=== PATIENT | female | born 1980 | race Two or more races ===

== ENCOUNTER 2017-08-30 11:01 | Emergency (ER) | payer OTHER ==
[~2017-08-30] VITALS: Ht 162.6 cm; Wt 90.7 kg
[2017-08-30 11:15] VITALS: BP 154/98
== END 2017-08-30 11:52 | disposition home or self-care (01) ==
LOC: ER 11:01
DX: N94.6 Dysmenorrhea, unspecified (principal)
CPT/HCPCS: 81025

== ENCOUNTER 2018-04-27 08:26 | Emergency (ER) | payer OTHER ==
[~2018-04-27] VITALS: Ht 162.6 cm; Wt 83.9 kg
[2018-04-27 09:17] LABS: Basophils # (auto) 0 uL; Basophils % (auto) 0.6 % (0.0-2.0); Eosinophils # (auto) 0 uL; Hemoglobin 10.1 g/dL (12.2-16.2); Lymphocytes # (auto) 2.2 uL; Mean Corpuscular Hemoglobin 22.6 pg (28.0-32.0); Mean Corpuscular Hgb Conc. 31.7 g/dL (32.0-36.0); Monocytes # (auto) 0.3 uL
[2018-04-27 09:18] LABS: Eosinophils % (auto) 0.4 % (0.0-7.0); Lymphocytes % (auto) 34.2 % (10.0-50.0); Mean Corpuscular Volume 71.2 fL (80.0-100.0); Monocytes % (auto) 4.3 % (0.0-12.0); Neutrophils # (auto) 3.9 uL; Neutrophils % (auto) 60.5 % (37.0-80.0); Nucleated Red Blood Cells % 0.1 %; Platelet Count (auto) 357 10^3/uL (140-450); Red Blood Cells 4.49 10^6/uL (4.0-5.20); Red Cell Distribution Width 14.8 % (11.8-14.3); White Blood Cell 6.4 10^3/uL (4.4-10.8)
[2018-04-27 09:33] LABS: Alanine Aminotransferase 21 U/L (13-56); Anion Gap 8 (5-15); Aspartate Aminotransferase 11 U/L (15-37); BUN/Creatinine Ratio 8.3; Blood Urea Nitrogen 6 mg/dL (7-18); Calcium 8.2 mg/dL (8.5-10.1); Carbon Dioxide 23 mmol/L (21-32); Chloride 108 mmol/L (98-107); GFR African American 119 mL/min; GFR Non-African American 98 mL/min; Glucose 110 mg/dL (74-106); Magnesium 1.9 mg/dL (1.6-2.6); Potassium 3.5 mmol/L (3.5-5.1); Sodium 139 mmol/L (136-145)
[2018-04-27 09:38] LABS: Alkaline Phosphatase 46 U/L (45-117); Bilirubin, Total 0.3 mg/dL (0.2-1.0); Total Protein 7.8 g/dL (6.4-8.2)
[2018-04-27] MEDS ORDERED: SODIUM CHLORIDE 0.9% 1,000 ML IV ONE (10:21)
[2018-04-27] MEDS ORDERED: KETOROLAC TROMETH 30 MG/ML 1ML VIAL IV ONE (10:30)
[2018-04-27] MEDS ORDERED: PROMETHAZINE HCL 25 MG/ML 1ML IV PRN (10:30)
[2018-04-27 10:34] LABS: Urine Bacteria NONE SEEN /hpf (None Seen); Urine Blood Negative /uL (Negative); Urine Mucus FEW (None Seen); Urine Specific Gravity 1.024 (1.001-1.035); Urine WBC 1 /hpf (0 - 5)
[2018-04-27 12:32] LABS: Beta HCG, Quantitative < 1 mlU/mL (1-3); Thyroid Stimulating Hormone 2.86 uIU/mL (0.358-3.74)
[2018-04-27 12:53] VITALS: BP 132/78
== END 2018-04-27 13:12 | disposition home or self-care (01) ==
LOC: ER 08:26
DX: R07.89 Other chest pain (principal); R10.13 Epigastric pain; D50.9 Iron deficiency anemia, unspecified
CPT/HCPCS: 36415; 71046; 76705; 80053; 81001; 83690; 83735; 84443; 84484; 84702; 85025; 93005; 96374; 99285; J1885; J7030

== ENCOUNTER 2022-08-28 15:35 | Emergency (ER) | payer OTHER ==
[~2022-08-28] VITALS: Ht 162.6 cm; Wt 99.5 kg
[2022-08-28 15:45] VITALS: BP 136/90
[2022-08-28] MEDS ORDERED: ACETAMINOPHEN 500 MG TAB PO ONE (16:15)
[2022-08-28 17:08] LABS: Basophils # (auto) 0.1 10 ^3/uL (0-0.2); Basophils % (auto) 0.8 % (0.0-2.0); Eosinophils # (auto) 0.1 10 ^3/uL (0-0.8); Hemoglobin 9.4 g/dL (12.2-16.2); Lymphocytes # (auto) 1.7 10 ^3/uL (0.4-5.4); Monocytes # (auto) 0.4 10 ^3/uL (0-1.3); Neutrophils # (auto) 6.6 10 ^3/uL (1.6-8.6); Nucleated Red Blood Cells % 0.1 %; White Blood Cell 8.9 10^3/uL (4.4-10.8)
[2022-08-28 17:09] LABS: Eosinophils % (auto) 0.8 % (0.0-7.0); Hematocrit 30.6 % (36.0-46.0); Lymphocytes % (auto) 19.4 % (10.0-50.0); Mean Corpuscular Hemoglobin 20.6 pg (28.0-32.0); Mean Corpuscular Hgb Conc. 30.8 g/dL (32.0-36.0); Red Blood Cells 4.56 10^6/uL (4.0-5.20); Red Cell Distribution Width 18.1 % (11.8-14.3)
[2022-08-28 17:19] LABS: Albumin 3.8 g/dL (3.4-5.0); BUN/Creatinine Ratio 11.1; Calcium 9.6 mg/dL (8.5-10.1); Potassium 3.9 mmol/L (3.5-5.1)
[2022-08-28 17:22] LABS: Bilirubin, Total 0.3 mg/dL (0.2-1.0); Total Protein 7.4 g/dL (6.4-8.2)
[2022-08-28] MEDS ORDERED: SODIUM CHLORIDE 0.9% 1,000 ML IV ONE (17:45)
[2022-08-28] MEDS ORDERED: ACET1CAP14 PO (19:52)
[2022-08-28] MEDS ORDERED: ASPirin 81 mg TAB PO ONE (20:00)
== END 2022-08-28 23:05 | disposition left against medical advice (07) ==
LOC: ER 15:35
DX: R07.89 Other chest pain (principal); D64.9 Anemia, unspecified; Z20.822 Contact with and (suspected) exposure to COVID-19
CPT/HCPCS: 36415; 71045; 80053; 83690; 84484; 85025; 85379; 87426; 93005

== ENCOUNTER 2023-02-06 13:33 | Emergency (ER) | payer OTHER ==
[~2023-02-06] VITALS: Ht 162.6 cm; Wt 98.3 kg
[~2023-02-06 13:33] MED LIST: ACET1CAP14 PO
[2023-02-06 14:21] LABS: Eosinophils # (auto) 0.1 10 ^3/uL (0-0.8); Hemoglobin 9.5 g/dL (12.2-16.2); Mean Corpuscular Volume 67.1 fL (80.0-100.0); Neutrophils # (auto) 5.8 10 ^3/uL (1.6-8.6); Neutrophils % (auto) 68.2 % (37.0-80.0); White Blood Cell 8.5 10^3/uL (4.4-10.8)
[2023-02-06 14:23] LABS: Basophils # (auto) 0.1 10 ^3/uL (0-0.2); Basophils % (auto) 0.8 % (0.0-2.0); Eosinophils % (auto) 0.8 % (0.0-7.0); Hematocrit 30.4 % (36.0-46.0); Lymphocytes # (auto) 2.1 10 ^3/uL (0.4-5.4); Lymphocytes % (auto) 24.8 % (10.0-50.0); Mean Corpuscular Hemoglobin 20.9 pg (28.0-32.0); Mean Corpuscular Hgb Conc. 31.2 g/dL (32.0-36.0); Monocytes # (auto) 0.5 10 ^3/uL (0-1.3); Monocytes % (auto) 5.4 % (0.0-12.0); Nucleated Red Blood Cells % 0.3 %; Red Blood Cells 4.53 10^6/uL (4.0-5.20); Red Cell Distribution Width 18.3 % (11.8-14.3)
[2023-02-06 14:44] LABS: Calcium 9.3 mg/dL (8.5-10.1); Potassium 3.8 mmol/L (3.5-5.1)
[2023-02-06 15:00] LABS: BUN/Creatinine Ratio 15.5 (10.0-20.0); Bilirubin, Total 0.3 mg/dL (0.2-1.0); Total Protein 7.4 g/dL (6.4-8.2)
[2023-02-06 15:03] LABS: Urine Bacteria NONE SEEN /hpf (None Seen); Urine Blood Negative /uL (Negative); Urine Mucus FEW (None Seen); Urine Specific Gravity 1.024 (1.001-1.035); Urine WBC 14 /hpf (0 - 5)
[2023-02-06] MEDS ORDERED: FAMO20TA10 PO (17:15)
[2023-02-06 17:31] VITALS: BP 138/76; PULSE 78; RESP 18; TEMP 98.2; O2SAT 99
== END 2023-02-06 17:35 | disposition home or self-care (01) ==
LOC: ER 13:33
DX: K29.70 Gastritis, unspecified, without bleeding (principal); E66.9 Obesity, unspecified; R06.02 Shortness of breath; R42 Dizziness and giddiness; K76.0 Fatty (change of) liver, not elsewhere classified; Z68.37 Body mass index [BMI] 37.0-37.9, adult; Z86.2 Personal history of diseases of the blood and blood-forming organs and certain disorders involving the immune mechanism; Z98.890 Other specified postprocedural states; Z79.1 Long term (current) use of non-steroidal anti-inflammatories (NSAID); Z79.899 Other long term (current) drug therapy
CPT/HCPCS: 36415; 71045; 76705; 80053; 81001; 83880; 84484; 85025; 93005

== ENCOUNTER 2023-06-26 20:47 | Inpatient (IN) | payer OTHER ==
[~2023-06-26] VITALS: Ht 157.5 cm; Wt 80.2 kg
[~2023-06-26 20:47] MED LIST changes: +FAMO20TA10 PO
[2023-06-26 21:54] LABS: Basophils # (auto) 0 10 ^3/uL (0-0.2); Basophils % (auto) 0.7 % (0.0-2.0); Eosinophils # (auto) 0.1 10 ^3/uL (0-0.8); Hematocrit 23.9 % (36.0-46.0); Lymphocytes % (auto) 28.2 % (10.0-50.0); Mean Corpuscular Hemoglobin 17.2 pg (28.0-32.0); Mean Corpuscular Hgb Conc. 29.3 g/dL (32.0-36.0); Mean Corpuscular Volume 58.6 fL (80.0-100.0); Monocytes # (auto) 0.5 10 ^3/uL (0-1.3); Monocytes % (auto) 6.9 % (0.0-12.0); Neutrophils # (auto) 4.4 10 ^3/uL (1.6-8.6); Neutrophils % (auto) 63.2 % (37.0-80.0); Nucleated Red Blood Cells % 0.1 %; Red Blood Cells 4.08 10^6/uL (4.0-5.20); Red Cell Distribution Width 19.8 % (11.8-14.3); White Blood Cell 6.9 10^3/uL (4.4-10.8)
[2023-06-26 22:11] LABS: Alanine Aminotransferase 26 U/L (7-40); Alkaline Phosphatase 50 U/L (46-116); Calcium 8.9 mg/dL (8.7-10.4); Carbon Dioxide 23 mmol/L (20-30); Chloride 108 mmol/L (98-107)
[2023-06-26 22:12] LABS: Albumin 4.6 g/dL (3.2-4.8); Anion Gap 7 (5-15); Aspartate Aminotransferase 19 U/L (13-40); BUN/Creatinine Ratio 12.5 (10.0-20.0); Bilirubin, Total 0.4 mg/dL (0.2-1.0); Blood Urea Nitrogen 8 mg/dL (9-23); Glucose 99 mg/dL (74-106); Magnesium 1.9 mg/dL (1.6-2.6); Potassium 3.7 mmol/L (3.5-5.1); Sodium 138 mmol/L (136-145); Total Protein 7.1 g/dL (5.7-8.2)
[2023-06-26 22:23] LABS: Anisocytosis Slight; Hypochromia Marked; Platelet Estimate Adequate
[2023-06-27] VITALS (11 sets, daily range): BP systolic 111–129; BP diastolic 65–75; PULSE 80–106; RESP 1–18; TEMP 98.2–99.4; O2SAT 97–100
[2023-06-27] MEDS ORDERED: ACETAMINOPHEN 325 MG TAB PO ONE (01:30)
[2023-06-27 03:10] LABS: Urine Bacteria NONE SEEN /hpf (None Seen); Urine Blood Negative /uL (Negative); Urine Clarity Clear (Clear); Urine Color Colorless (Yellow); Urine Protein, UAD Negative (Negative); Urine Specific Gravity 1.024 (1.001-1.035); Urine Urobilinogen Normal (Negative); Urine WBC 1 /hpf (0 - 5)
[2023-06-27 10:00] LABS: Thyroid Stimulating Hormone 1.58 uIU/mL (0.55-4.78)
[2023-06-27 10:18] LABS: Beta HCG, Quantitative 1.2 mIU/mL (1.5-4.2)
[2023-06-27] MEDS ORDERED: ONDANSETRON HCL 4 MG/2 ML VIAL IV PRN ×2 (12:00→13:30)
[2023-06-27] MEDS ORDERED: ACETAMINOPHEN 325 MG TAB PO SCH (12:00)
[2023-06-27] MEDS ORDERED: ONDANSETRON HCL 4 MG/2 ML VIAL ONE (12:06)
[2023-06-27] MEDS ORDERED: NITROGLYCERIN 0.4 MG SL TAB SL PRN (13:30)
[2023-06-27] MEDS ORDERED: medroxyPROGESTERone ACETATE 5 MG TAB PO ONE (13:30)
[2023-06-27] MEDS ORDERED: MORPHINE SULFATE INJ 2 MG/ml SYRG IV PRN (13:30)
[2023-06-27] MEDS: SODIUM CHLORIDE 0.9% 1,000 ML IV SCH ×2 (14:16→21:31)
[2023-06-27 14:28] LABS: Wright Stain Ready for Review
[2023-06-27 14:35] LABS: % Iron Saturation 3.6 % (15-50)
[2023-06-27 14:56] LABS: Erythrocyte Sedimentation Rate 16 mm/hr (0-20); Ferritin 3.3 ng/mL (10-291)
[2023-06-27 14:57] LABS: Folate (Folic Acid) > 24.00 ng/mL (>5.38)
[2023-06-27] MEDS ORDERED: ACETAMINOPHEN 325 MG TAB PO PRN (18:15)
[2023-06-27] MEDS: traMADol HCL 50 MG TAB PO PRN (18:21)
[2023-06-27] MEDS: FERROUS SULFATE 300 MG/5 ML ORAL LIQ PO SCH (18:21)
[2023-06-28 05:00] VITALS: BP 104/54; PULSE 85; RESP 16; TEMP 98.3; O2SAT 97
[2023-06-28] MEDS: SODIUM CHLORIDE 0.9% 1,000 ML IV SCH (05:59)
[2023-06-28] MEDS ORDERED: MEDR5TAB5 PO (06:47)
[2023-06-28] MEDS ORDERED: FER300LQ PO (06:47)
[2023-06-28 06:58] LABS: Eosinophils # (auto) 0.1 10 ^3/uL (0-0.8); Mean Corpuscular Hgb Conc. 30.3 g/dL (32.0-36.0); Monocytes # (auto) 0.7 10 ^3/uL (0-1.3); Monocytes % (auto) 7.2 % (0.0-12.0); Neutrophils # (auto) 6.5 10 ^3/uL (1.6-8.6); Nucleated Red Blood Cells % 0.2 %; Red Blood Cells 4.34 10^6/uL (4.0-5.20)
[2023-06-28 06:59] LABS: Basophils # (auto) 0 10 ^3/uL (0-0.2); Basophils % (auto) 0.5 % (0.0-2.0); Eosinophils % (auto) 0.9 % (0.0-7.0); Hematocrit 26.5 % (36.0-46.0); Lymphocytes % (auto) 21.7 % (10.0-50.0); Mean Corpuscular Hemoglobin 18.5 pg (28.0-32.0); Neutrophils % (auto) 69.7 % (37.0-80.0); White Blood Cell 9.3 10^3/uL (4.4-10.8)
[2023-06-28 07:06] LABS: Thyroxine (T4) 7.3 ug/dL (4.5-12.0)
[2023-06-28 07:07] LABS: Red Cell Distribution Width 21.5 % (11.8-14.3)
[2023-06-28 08:00] VITALS: PULSE 87; PULSE 90
[2023-06-28 08:17] LABS: Haptoglobin 132 mg/dL (42-296)
[2023-06-28] MEDS: FERROUS SULFATE 300 MG/5 ML ORAL LIQ PO SCH ×2 (09:05→12:00)
[2023-06-28] MEDS: traMADol HCL 50 MG TAB PO PRN (09:06)
[2023-06-28] MEDS ORDERED: medroxyPROGESTERone ACETATE 5 MG TAB PO SCH (10:00)
[2023-06-28 10:16] VITALS: BP 115/53; PULSE 71; RESP 18; TEMP 98.4; O2SAT 95
[2023-06-28 11:29] VITALS: TEMP 36.9
[2023-06-28 13:06] VITALS: BP 111/60; PULSE 86; RESP 18; TEMP 99; O2SAT 98
[2023-06-29 09:06] LABS: Anti-Nuclear Antibody Direct Negative (Negative)
== END 2023-06-28 12:15 | disposition home or self-care (01) | DRG 663 ==
LOC: ER 20:47 → TELE-CENTR 06-27 13:23 → TELE 06-27 13:23 → TELE-CENTR 06-27 16:06
PROVIDERS: ADMIT Obstetrics & Gynecology; ATTEND Obstetrics & Gynecology
PROC: 30233N1 Transfusion of Nonautologous Red Blood Cells into Peripheral Vein, Percutaneous Approach (ICD-10-PCS; principal; 2023-06-27)
DX: D64.9 Anemia, unspecified (principal); N85.2 Hypertrophy of uterus; N92.0 Excessive and frequent menstruation with regular cycle
CPT/HCPCS: 36415; 71045; 76856; 80053; 81001; 82607; 82728; 82746; 83010; 83540; 83550; 83615; 83735; 83880; 84146; 84436; 84443; 84484; 84702; 85025; 85045; 85652; 86038; 86850; 86880; 86900; 86901; 86922; 93005; 96374; G0378; J2405

== ENCOUNTER 2024-09-10 14:38 | Emergency (ER) | payer SELFPAY ==
[~2024-09-10] VITALS: Ht 162.6 cm; Wt 100.5 kg
[~2024-09-10 14:38] MED LIST changes: +FER300LQ PO; +MEDR5TAB5 PO
[2024-09-10 15:52] VITALS: BP 150/68; PULSE 96; RESP 16; TEMP 98.9; O2SAT 98
[2024-09-10] MEDS ORDERED: CIPR-173 PO (16:27)
[2024-09-10] MEDS ORDERED: HYDR-4798 PO (16:27)
--- NOTE | 2024-09-10 16:28 | ED.PDOC ---
Eye-HPI HPI Comments 44-year-old with a history of anemia presents with a chief complaint of dental pain to the left upper quadrant. Symptoms started two weeks ago and reports they are gradually worsening. Has not made an appointment with her dental provider because she has no insurance at this time. Taking [id number] Tylenol ibuprofen with minimal improvement denies fevers. Able to eat drink in usual state of health Chief Complaint: Tooth Pain Time Seen by MD: 14:50 Primary Care Provider: Ac Murcia Reviewed Notes: Nurses Notes, Medications, Allergies Allergies: Coded Allergies: NO KNOWN ALLERGIES (Unverified , 04/27/18) Home Meds Active Scripts Ferrous Sulfate (Ferrous Sulfate) 300 Mg/5 Ml Sr, 300 MG PO TIDWM for 30 Days, SYP Prov:AALIYAH KEENE DO 06/28/23 Medroxyprogesterone Acetate (Medroxyprogesterone Aceta) 5 Mg Tab, 10 MG PO DAILY for 30 Days, #60 TAB Prov:AALIYAH KEENE DO 06/28/23 Famotidine (PEPCID TABLET) 20 Mg Tb, 1 TAB PO BID, #60 TAB 5 Refills Prov:MAR ACEVEDO DO 02/06/23 Acetaminophen (Tylenol) 325 Mg Cap, 325 MG PO Q4HPRN PRN, #30 CAP 0 Refills Take 1-2 caps po q4h prn for pain Prov:MICHELLE MATT LIBRARIAN 08/28/22 Information Source: Patient Mode of Arrival: Ambulatory Past Medical History PAST MEDICAL HISTORY: Anemia, Denies Surgical History: , Denies all surgeries 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 TTP. no dc.) Neck: Full Range of Motion, Non-Tender, Normal, Normal Inspection Respiratory: Chest Non-Tender, Lungs Clear, No Accessory Muscle Use, No Respiratory Distress, Normal Breath Sounds Cardiovascular: No Edema, No JVD, No Murmur, No Gallop, Normal Peripheral Pulses, Regular Rate/Rhythm Breast Exam: Deferred Gastrointestinal: No Organomegaly, Non Tender, No Pulsatile Mass, Normal Bowel Sounds, Soft Genitalia: Deferred Pelvic: Deferred Rectal: Deferred Extremities: No calf tenderness, Normal capillary refill, Normal inspection, Normal range of motion, Non-tender, No pedal edema Musculoskeletal : Apperance: Normal Neurologic: Alert, No Motor Deficits, Normal Affect, Normal Mood, No Sensory Deficits Cerebellar Function: Normal Reflexes: Normal Skin: Dry, Normal Color, Warm Lymphatic: No Adenopathy Was a procedure done? Was a procedure done?: No EENT DIFF Eye: Other X-Ray, Labs, Meds, VS Vital Signs Date Time Temp Pulse Resp B/P (MAP) Pulse Ox O2 Delivery O2 Flow Rate FiO2 09/10/24 15:52 98.9 96 16 150/68 (95) 98 98.9 09/10/24 15:52 96 16 98 Room Air 09/10/24 14:49 98.9 96 16 150/68 (95) 98 X-Ray, Labs, Meds, VS Comment Patient not immunosuppressed. No evidence of tooth fracture, avulsion, or bleeding socket. No e/o retropharangeal abscess, peritonsillar abscess, Ludwigs angina, periapical abscess. No e/o gingival hyperplasia or concern for drug reaction. Rx [place] Checked the [employer] website, no history of narcotic use within the past year. Will prescribe [place] p.o. for pain management. Education provided on possible side effects of medication including drowsiness, nausea, respiratory distress, etc. Do not drive, operate heavy machinery or make legal decisions while taking medication. Follow-up with your PMD within 24 to 48 hours. Disposition: Discharge home. Discussed return precautions for odontogenic infections and other dental pain emergencies. Will provide dental clinic list. Declined lab work for her anemia. Patient is stable for discharge at this time. External notes reviewed. Test results and diagnostic imaging interpreted. All diagnostic findings, discharge care, education and instructions provided Follow-up with PCP in 2 to 3 days Patient verbalized understanding and agreed to treatment plan Vital signs stable, afebrile, no acute distress noted Patient ambulatory with strong steady gait Advised to return precautions for any new or worsening symptoms, return to ER immediately for re-evaluation Patient is aware that the purpose of this visit was for an acute medical emergency requiring emergent stabilization. Chronic conditions, including malignancies have not been ruled out. Patient is instructed to follow up with PCP as directed and discharge instructions for continued care and workup. If unable to arrange follow-up, patient is to return to the emergency department for reassessment. Patient (parent or legal guardian if applicable) was given verbal and written discharge instructions and acknowledges understanding. Time of 1ST Reevaluation: 16:23 Reevaluation 1ST: Improved Patient Education/Counseling: Diagnosis, Treatment Family Education/Counseling: Diagnosis, Treatment Departure 1 Departure Time of Disposition: 16:25 Impression: Primary Impression: Tooth pain Disposition: HOME / SELF CARE / HOMELESS Condition: Fair e-Prescriptions Ciprofloxacin Hcl (Cipro) 500 Mg Tab 1 TAB PO BID for 10 Days, #20 TAB 0 Refills Prov: SHIMON RONDON COMPLIANCE INTERN 09/10/24 Hydrocodone-Acetaminophen (Hydrocodone Bitartrate/AC 10-325 mg) 1 Tab Tab 1 TAB PO Q6HP PRN for 7 Days, #28 TAB 0 Refills Prov: SHIMON RONDON COMPLIANCE INTERN 09/10/24 Critical Care Note Critical Care Time?: No Stability Stability form required: No Heart Score Heart Score: Heart Score Response (Comments) Value History N/A 0 EKG N/A 0 Age N/A 0 Risk Factors N/A 0 Troponin N/A 0 Total 0 SHIMNO RONDON COMPLIANCE INTERN Sep 10, 2024 16:28
[2024-09-10] MEDS: KETOROLAC TROMETH 60MG/2ML VIAL IM ONE (16:41)
[2024-09-10] MEDS: cefTRIAXone SOD 1,000 MG VL IM ONE (16:41)
== END 2024-09-10 16:47 | disposition home or self-care (01) ==
LOC: ER 14:38
DX: K08.89 Other specified disorders of teeth and supporting structures (principal); R10.12 Left upper quadrant pain; D64.9 Anemia, unspecified; Z79.899 Other long term (current) drug therapy; Z98.890 Other specified postprocedural states
CPT/HCPCS: 96372; 99284; J0696; J1885

== ENCOUNTER 2024-10-30 09:25 | Emergency (ER) | payer MEDICAID, OTHER ==
[~2024-10-30] VITALS: Ht 162.6 cm; Wt 82.0 kg
[~2024-10-30 09:25] MED LIST changes: +CIPR-173 PO; +HYDR-4798 PO
[2024-10-30 10:04] LABS: Eosinophils # (auto) 0 10 ^3/uL (0-0.8); Eosinophils % (auto) 0.4 % (0.0-7.0); Lymphocytes # (auto) 1.8 10 ^3/uL (0.4-5.4); Mean Corpuscular Volume 64.8 fL (80.0-100.0); Neutrophils # (auto) 4.8 10 ^3/uL (1.6-8.6); Nucleated Red Blood Cells % 0.1 %; Red Cell Distribution Width 21.5 % (11.8-14.3)
[2024-10-30 10:06] LABS: Basophils # (auto) 0 10 ^3/uL (0-0.2); Basophils % (auto) 0.5 % (0.0-2.0); Hematocrit 26.1 % (36.0-46.0); Hemoglobin 7.9 g/dL (12.2-16.2); Lymphocytes % (auto) 25.3 % (10.0-50.0); Mean Corpuscular Hemoglobin 19.6 pg (28.0-32.0); Mean Corpuscular Hgb Conc. 30.2 g/dL (32.0-36.0); Monocytes # (auto) 0.4 10 ^3/uL (0-1.3); Monocytes % (auto) 5.1 % (0.0-12.0); Neutrophils % (auto) 68.7 % (37.0-80.0); Platelet Count (auto) 453 10^3/uL (140-450); Red Blood Cells 4.03 10^6/uL (4.0-5.20)
[2024-10-30 10:10] LABS: Urine Bacteria None Seen /hpf (None Seen)
[2024-10-30 10:11] LABS: Anisocytosis Slight; Hypochromia Marked; Platelet Estimate Increased
[2024-10-30 10:25] LABS: Urine Blood Negative /uL (Negative); Urine Clarity Clear (Clear); Urine Color Light-Yellow (Yellow); Urine Mucus FEW (None Seen); Urine Protein, UAD Negative (Negative); Urine Specific Gravity 1.021 (1.001-1.035); Urine Squamous Epithelial Cell MOD /hpf (<5); Urine Urobilinogen Normal (Negative); Urine WBC 2 /HPF (0-5); Urine pH 5.5 (5.0-9.0)
--- NOTE | 2024-10-30 11:29 | ED.PDOC ---
History of Present Illness HPI Comments 44 y/o obese F, with a history of anemia w/blood transfusions, anxeity, and endometrial hyperplasia, for chest and back pain, shortness of breath, and headache for 1 day, today. Patient reports persisting symptoms following unprovoked onset, last night. She denies any nausea, vomiting, fever, chills, or other associated symptoms or modifiers at this time. Chief Complaint: Chest Pain Time Seen by MD: 09:50 Primary Care Provider: Ac Murcia Reviewed Notes: Nurses Notes, Medications, Allergies Allergies: Coded Allergies: NO KNOWN ALLERGIES (Unverified , 04/27/18) Home Meds Active Scripts Ferrous Sulfate (FERROUS SULFATE) 325 Mg Tb, 1 TAB PO DAILY for 10 Days, #10 TAB 3 Refills Prov:RANI JACKSON MD 10/30/24 Ciprofloxacin Hcl (Cipro) 500 Mg Tab, 1 TAB PO BID for 10 Days, #20 TAB 0 Refills Prov:SHIMON RONDON RESTAURANT LINE SERVER 09/10/24 Hydrocodone-Acetaminophen (Hydrocodone Bitartrate/AC 10-325 mg) 1 Tab Tab, 1 TAB PO Q6HP PRN for 7 Days, #28 TAB 0 Refills Prov:SHIMON RONDON RESTAURANT LINE SERVER 09/10/24 Ferrous Sulfate (Ferrous Sulfate) 300 Mg/5 Ml Sr, 300 MG PO TIDWM for 30 Days, SYP Prov:AALIYAH KEENE DO 06/28/23 Medroxyprogesterone Acetate (Medroxyprogesterone Aceta) 5 Mg Tab, 10 MG PO DAILY for 30 Days, #60 TAB Prov:AALIYAH KEENE DO 06/28/23 Famotidine (PEPCID TABLET) 20 Mg Tb, 1 TAB PO BID, #60 TAB 5 Refills Prov:MAR ACEVEDO DO 02/06/23 Acetaminophen (Tylenol) 325 Mg Cap, 325 MG PO Q4HPRN PRN, #30 CAP 0 Refills Take 1-2 caps po q4h prn for pain Prov:MICHELLE MATT PSYCHIATRIC AIDE INSTRUCTOR 08/28/22 Information Source: Patient Mode of Arrival: Ambulatory Severity: Moderate Timing: Hours Duration: Since onset Prehospital treatment: None Past Medical History PAST MEDICAL HISTORY: Anemia, Anxiety Past Medical History (Other): obesity Surgical History: Surgical History (Other): blood 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: Other (endometrial hyperplasia) Family History Family History: Reviewed,noncontributory to illness Social History Smoker: Non-Smoker Alcohol: Denies ETOH Use Drugs: Denies Drug Use Lives In: Home All Other Systems: Reviewed and Negative (Comprehensive systems review obtained and negative except for what is stated in the HPI.) Physical Exam General Appearance: Moderate Distress HEENT: Normal ENT Inspection, Pharynx Normal, TMs Normal Neck: Full Range of Motion, Non-Tender, Normal, Normal Inspection Respiratory: Chest Non-Tender, Lungs Clear, No Accessory Muscle Use, No Respiratory Distress, Normal Breath Sounds Cardiovascular: No Edema, No JVD, No Murmur, No Gallop, Normal Peripheral Pulses, Regular Rate/Rhythm Breast Exam: Deferred Gastrointestinal: No Organomegaly, Non Tender, No Pulsatile Mass, Normal Bowel Sounds, Soft Genitalia: Deferred Pelvic: Deferred Rectal: Deferred Extremities: No calf tenderness, Normal capillary refill, Normal inspection, Normal range of motion, Non-tender, No pedal edema Musculoskeletal : Apperance: Normal Neurologic: Alert, accountant helper II-XII nml as Tested, No Motor Deficits, Normal Affect, Normal Mood, No Sensory Deficits Cerebellar Function: Normal Reflexes: Normal Skin: Dry, Normal Color, Warm Peripheral Pulses: 3+ Radial (R), 3+ Radial (L) Lymphatic: No Adenopathy Was a procedure done? Was a procedure done?: No EKG EKG : Pulse Rate (adult): 106 [place]: Normal Cardiac Rhythm: ST Block: None Hypertrophy: None ST: Normal Differential Dx Considerations may include: [place], PE, ACS, PNA, URI, viral syndrome, anxiety, angina, costochondritis, pericarditis, gastritis, among others X-Ray, Labs, Meds, VS Vital Signs Date Time Temp Pulse Resp B/P (MAP) Pulse Ox O2 Delivery O2 Flow Rate FiO2 10/30/24 11:29 106 10/30/24 09:29 106 10/30/24 09:26 97.8 111 18 173/77 (109) 98 97.8 10/30/24 09:26 111 Lab Test 10/30/24 09:37 10/30/24 09:30 Range/Units White Blood Count 7.0 4.4-10.8 10^3/uL Red Blood Count 4.03 4.0-5.20 10^6/uL Hemoglobin 7.9 L 12.2-16.2 g/dL Hematocrit 26.1 L 36.0-46.0 % Mean Corpuscular Volume 64.8 L 80.0-100.0 fL Mean Corpuscular Hemoglobin 19.6 L 28.0-32.0 pg Mean Corpuscular Hemoglobin Concent 30.2 L 32.0-36.0 g/dL Red Cell Distribution Width 21.5 H 11.8-14.3 % Platelet Count 453 H 140-450 10^3/uL Mean Platelet Volume 7.7 6.9-10.8 fL Neutrophils (%) (Auto) 68.7 37.0-80.0 % Lymphocytes (%) (Auto) 25.3 10.0-50.0 % Monocytes (%) (Auto) 5.1 0.0-12.0 % Eosinophils (%) (Auto) 0.4 0.0-7.0 % Basophils (%) (Auto) 0.5 0.0-2.0 % Neutrophils # (Auto) 4.8 1.6-8.6 10 ^3/uL Lymphocytes # (Auto) 1.8 0.4-5.4 10 ^3/uL Monocytes # (Auto) 0.4 0-1.3 10 ^3/uL Eosinophils # (Auto) 0 0-0.8 10 ^3/uL Basophils # (Auto) 0 0-0.2 10 ^3/uL Nucleated Red Blood Cells 0.1 % Platelet Estimate Increased Hypochromasia (manual) Marked Anisocytosis (manual) Slight Microcytosis Marked Troponin I High Sensitivity < 3 L </=34 ng/L Urine Color Light-yellow Yellow Urine Clarity Clear Clear Urine pH 5.5 5.0-9.0 Urine Specific [place] 1.021 1.001-1.035 Urine Protein Negative Negative Urine Ketones Negative Negative Urine Blood Negative Negative /uL Urine Nitrite Negative Negative Urine Bilirubin Negative Negative Urine Urobilinogen Normal Negative mg/dL Urine Leukocyte Esterase Negative Negative /uL Urine RBC 1 0 - 4 /hpf Urine Microscopic WBC 2 0-5 /HPF Urine Squamous Epithelial Cells Mod <5 /hpf Urine Bacteria None seen None Seen /hpf Urine Mucus Few None Seen Urine Glucose Normal Normal mg/dL Patient alert. Came in because of possible anemia. Vitals stable. Answering questions. EKG reviewed does not show any acute changes. Cardiac marker within normal limits. WBC within normal limits. Hemoglobin slightly low. Was given prescription of ferrous sulfate. She is anxious. Heart rate within normal limits on clinical examination. Saturation pristine on room air. Respiratory rate within normal limits. No leg swelling. No shortness a breath. Does not meet any criteria. Reviewed her history. Explained to the patient. Was told to follow up with her primary care physician. Was told to come back if there is any problem. Time of 1ST Reevaluation: 10:20 Reevaluation 1ST: Improved Patient Education/Counseling: Diagnosis, Treatment Family Education/Counseling: No Family Present Additional Information Previous medical encounters reviewed: June 27, 2023 encounter for symptomatic anemia The following tests were ordered, and results were reviewed by me: EKG, RBC morphology, troponin UA, CBC Additional Information was gathered from interviewing the following independent historians: n/a I reviewed and agreed with the following test results read by other providers: n/a I discussed treatment and results with medical personnel and: Patient Departure 1 Departure Time of Disposition: 11:44 Impression: Primary Impression: Symptomatic anemia Disposition: 01 HOME / SELF CARE / HOMELESS Condition: Good e-Prescriptions Ferrous Sulfate (FERROUS SULFATE) 325 Mg Tb 1 TAB PO DAILY for 10 Days, #10 TAB 3 Refills Prov: RANI JACKSON MD 10/30/24 Discharged With: Self Critical Care Note Critical Care Time?: No Stability Stability form required: No Heart Score Heart Score: Heart Score Response (Comments) Value History Slightly Suspicious 0 EKG Normal 0 Age <45 0 Risk Factors No known risk factors 0 Troponin Normal limit 0 Total 0 I personally scribed for RANI JACKSON MD ([email or web address]) on 10/30/24 at 11:29. Electronically submitted by Jam Nice ([email or web address]). RANI JACKSON MD Oct 30, 2024 11:29
[2024-10-30] MEDS ORDERED: FER325T PO (11:45)
[2024-10-30 13:01] VITALS: BP 154/82; PULSE 91; RESP 18; TEMP 98.1; O2SAT 100
--- NOTE | 2024-10-31 15:03 | ECG ---
[facility] Test Date: 2024-10-30 Test Time: 09:29:55 Pat Name: VANESA FU Department: ED Room: Gender: F Weather Clerk: JUAN JOSE BARILLASB: 1980 Requested By: RANI JACKSON Order Number: [id number] Reading MD: Measurements Intervals [place] Rate: 106 P: 72 ND: 148 QRS: 70 QRSD: 86 T: 33 QT: 344 QTc: 457 Interpretive Statements Sinus tachycardia Baseline wander in lead(s) V6 Please click the below link to view image of tracing.
== END 2024-10-30 13:05 | disposition home or self-care (01) ==
LOC: ER 09:28
DX: R07.9 Chest pain, unspecified (principal); M54.9 Dorsalgia, unspecified; R06.02 Shortness of breath; F41.9 Anxiety disorder, unspecified; E66.9 Obesity, unspecified; Z98.890 Other specified postprocedural states; Z79.3 Long term (current) use of hormonal contraceptives; Z79.899 Other long term (current) drug therapy
CPT/HCPCS: 36415; 81001; 84484; 85025; 93005

== ENCOUNTER 2024-11-12 15:05 | Emergency (ER) | payer OTHER ==
[~2024-11-12] VITALS: Ht 162.6 cm; Wt 99.9 kg
[~2024-11-12 15:05] MED LIST changes: +FER325T PO
[2024-11-12 16:29] LABS: Basophils # (auto) 0.1 10 ^3/uL (0-0.2); Basophils % (auto) 0.9 % (0.0-2.0); Eosinophils # (auto) 0.1 10 ^3/uL (0-0.8); Eosinophils % (auto) 1.2 % (0.0-7.0); Hematocrit 28.2 % (36.0-46.0); Hemoglobin 8.7 g/dL (12.2-16.2); Lymphocytes # (auto) 1.7 10 ^3/uL (0.4-5.4); Lymphocytes % (auto) 22.9 % (10.0-50.0); Mean Corpuscular Hemoglobin 20.1 pg (28.0-32.0); Mean Corpuscular Hgb Conc. 30.8 g/dL (32.0-36.0); Mean Corpuscular Volume 65.5 fL (80.0-100.0); Monocytes # (auto) 0.4 10 ^3/uL (0-1.3); Monocytes % (auto) 5.3 % (0.0-12.0); Neutrophils # (auto) 5.2 10 ^3/uL (1.6-8.6); Neutrophils % (auto) 69.7 % (37.0-80.0); Nucleated Red Blood Cells % 0.1 %; Platelet Count (auto) 283 10^3/uL (140-450); White Blood Cell 7.4 10^3/uL (4.4-10.8)
[2024-11-12 16:30] LABS: Red Cell Distribution Width 23.9 % (11.8-14.3)
[2024-11-12 16:40] LABS: Chloride 105 mmol/L (98-107); Potassium 3.5 mmol/L (3.5-5.1); Sodium 140 mmol/L (136-145)
[2024-11-12 16:41] LABS: Anion Gap 9 (5-15); Carbon Dioxide 26 mmol/L (20-31)
--- NOTE | 2024-11-12 16:43 | ED.PDOC ---
History of Present Illness HPI Comments 44 year old female presents to the ED with chief complaint of SOB and weakness. Patient reports that she has been experiencing SOB with associated weakness, near syncope, dizziness, vision changes, and fatigue since yesterday. Patient relays that she has heavy menstrual cycles, starting also yesterday. Patient states that her last Hgb level was noted to be 7. Patient notes that she usually gets iron infusions when she develops these symptoms, and that the iron infusions usually relieved the symptoms. Patient denies any N/V/D, chest pain, abdominal pain, or LOC. Chief Complaint: Shortness of Breath Time Seen by MD: 16:38 Primary Care Provider: Ac Murcia Reviewed Notes: Nurses Notes, Medications, Allergies Allergies: Coded Allergies: NO KNOWN ALLERGIES (Unverified , 04/27/18) Home Meds Active Scripts Ferrous Sulfate (FERROUS SULFATE) 325 Mg Tb, 1 TAB PO DAILY for 10 Days, #10 TAB 3 Refills Prov:RANI JACKSON MD 10/30/24 Ciprofloxacin Hcl (Cipro) 500 Mg Tab, 1 TAB PO BID for 10 Days, #20 TAB 0 Refills Prov:SHIMON RONDON HUB LEAD 09/10/24 Hydrocodone-Acetaminophen (Hydrocodone Bitartrate/AC 10-325 mg) 1 Tab Tab, 1 TAB PO Q6HP PRN for 7 Days, #28 TAB 0 Refills Prov:SHIMON RONDON HUB LEAD 09/10/24 Ferrous Sulfate (Ferrous Sulfate) 300 Mg/5 Ml Sr, 300 MG PO TIDWM for 30 Days, SYP Prov:AALIYAH KEENE DO 06/28/23 Medroxyprogesterone Acetate (Medroxyprogesterone Aceta) 5 Mg Tab, 10 MG PO DAILY for 30 Days, #60 TAB Prov:AALIYAH KEENE DO 06/28/23 Famotidine (PEPCID TABLET) 20 Mg Tb, 1 TAB PO BID, #60 TAB 5 Refills Prov:MAR ACEVEDO DO 02/06/23 Acetaminophen (Tylenol) 325 Mg Cap, 325 MG PO Q4HPRN PRN, #30 CAP 0 Refills Take 1-2 caps po q4h prn for pain Prov:MICHELLE MATT COMPUTER SPECIALIST 08/28/22 Information Source: Patient Mode of Arrival: Ambulatory Severity: Moderate Timing: Days Duration: Since onset Prehospital treatment: None Past Medical History PAST MEDICAL HISTORY: Anemia, Anxiety 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: Other (Proliferative endometrium) Family History Family History: Reviewed,noncontributory to illness Social History Smoker: Non-Smoker Alcohol: Denies ETOH Use Drugs: Denies Drug Use Lives In: Home Constitutional: reports: fatigue, weakness; denies: chills, diaphoresis, fever, malaise, sweats, others EENTM: reports: others (Vision changes); denies: blurred vision, double vision, ear bleeding, ear discharge, ear drainage, ear pain, ear ringing, eye pain, eye redness, hearing loss, mouth pain, mouth swelling, nasal discharge, nose bleeding, nose congestion, nose pain, photophobia, tearing, throat pain, throat swelling, voice changes Respiratory: reports: shortness of breath; denies: cough, hemoptysis, orthopnea, SOB at rest, SOB with excertion, stridor, wheezing, others Cardiovascular: denies: chest pain, dizzy spells, diaphoresis, Dyspnea on exertion, edema, irregular heart beat, left arm pain, lightheadedness, palpitations, PND, syncope, others Gastrointestinal: denies: abdomen distended, abdominal pain, blood streaked bowels, constipated, diarrhea, dysphagia, difficulty swallowing, hematemesis, melena, nausea, poor appetite, poor fluid intake, rectal bleeding, rectal pain, vomiting, others Genitourinary: reports: abnormal vagina bleeding; denies: burning, dyspareunia, dysuria, flank pain, frequency, hematuria, incontinence, pain, , vagina discharge, urgency, others Neurological: reports: dizziness; denies: fainting, headache, left sided numbness, left sided weakness, numbness, paresthesia, pre-existing deficit, rig ht sided numbness, right sided weakness, seizure, speech problems, tingling, tremors, weakness, others Musculoskeletal: denies: back pain, gout, joint pain, joint swelling, muscle pain, muscle stiffness, neck pain, others Integumetry: denies: bruises, change in color, change in hair/nails, dryness, laceration, lesions, lumps, rash, wounds, others Allergic/Immunocompromised: denies: Difficulty Healing, Frequent Infections, Hives, Itching, others Hematologic/Lymphatic: denies: anemia, blood clots, easy bleeding, easy bruising, swollen glands, others Endocrine: denies: excessive hunger, excessive sweating, excessive thirst, excessive urination, flushing, intolerance to cold, intolerance to heat, unexplained weight gain, unexplained weight loss, others Psychiatric: denies: anxiety, bipolar disorder, depression, hopeless, panic disorder, schizophrenia, sleepless, suicidal, others All Other Systems: Reviewed and Negative Physical Exam General Appearance: No Apparent Distress HEENT: Other (Pupils and face symmetric, moist mucous membranes.) Neck: Full Range of Motion, Normal Inspection Respiratory: Lungs Clear, No Accessory Muscle Use, No Respiratory Distress, Normal Breath Sounds Cardiovascular: No Edema, No JVD, Tachycardia Breast Exam: Deferred Gastrointestinal: Non Tender, Soft Genitalia: Deferred Pelvic: Deferred Rectal: Deferred Extremities: Normal inspection, Normal range of motion, Non-tender, No pedal edema Neurologic: Alert (Oriented x4), Normal Affect, Other (Ambulatory without difficulty. Appears anxious.) Cerebellar Function: NOT DONE Reflexes: NOT DONE Skin: Dry, Pallor, Warm Lymphatic: NOT DONE Was a procedure done? Was a procedure done?: No EKG EKG : Comments Sinus tach, rate rate 118, normal intervals, normal axis, normal QRS, no ST/T changes. Differential Dx Considerations may include: Anemia, anxiety, hypovolemia, low iron levels, arrhythmia, mi, CHF, PE, among others X-Ray, Labs, Meds, VS Vital Signs Date Time Temp Pulse Resp B/P (MAP) Pulse Ox O2 Delivery O2 Flow Rate FiO2 11/12/24 21:50 98.2 100 12 124/47 (72) 99 98.2 11/12/24 15:19 118 11/12/24 15:15 98.5 129 16 152/87 (108) 98 98.5 Lab Test 11/12/24 17:10 11/12/24 16:06 Range/Units Troponin I High Sensitivity 9 7 </=34 ng/L White Blood Count 7.4 4.4-10.8 10^3/uL Red Blood Count 4.30 4.0-5.20 10^6/uL Hemoglobin 8.7 L 12.2-16.2 g/dL Hematocrit 28.2 L 36.0-46.0 % Mean Corpuscular Volume 65.5 L 80.0-100.0 fL Mean Corpuscular Hemoglobin 20.1 L 28.0-32.0 pg Mean Corpuscular Hemoglobin Concent 30.8 L 32.0-36.0 g/dL Red Cell Distribution Width 23.9 H 11.8-14.3 % Platelet Count 283 140-450 10^3/uL Mean Platelet Volume 8.5 6.9-10.8 fL Neutrophils (%) (Auto) 69.7 37.0-80.0 % Lymphocytes (%) (Auto) 22.9 10.0-50.0 % Monocytes (%) (Auto) 5.3 0.0-12.0 % Eosinophils (%) (Auto) 1.2 0.0-7.0 % Basophils (%) (Auto) 0.9 0.0-2.0 % Neutrophils # (Auto) 5.2 1.6-8.6 10 ^3/uL Lymphocytes # (Auto) 1.7 0.4-5.4 10 ^3/uL Monocytes # (Auto) 0.4 0-1.3 10 ^3/uL Eosinophils # (Auto) 0.1 0-0.8 10 ^3/uL Basophils # (Auto) 0.1 0-0.2 10 ^3/uL Nucleated Red Blood Cells 0.1 % Platelet Estimate Adequate Large Platelets Few Hypochromasia (manual) Marked Poikilocytosis (manual) Anisocytosis (manual) Slight Microcytosis Marked Tear Drop Cells Few Prothrombin Time 10.9 9.3-11.8 sec Prothrombin Time INR 1.03 0.9-1.15 Activated Partial Thromboplast Time 25.2 24.5-34.5 SEC Sodium Level 140 136-145 mmol/L Potassium Level 3.5 3.5-5.1 mmol/L Chloride Level 105 98-107 mmol/L Carbon Dioxide Level 26 20-31 mmol/L Anion Gap 9 5-15 Blood Urea Nitrogen 11 9-23 mg/dL Creatinine 0.60 0.550-1.02 mg/dL Glomerular Filtration Rate Calc 115 >90 mL/min BUN/Creatinine Ratio 18.3 10.0-20.0 Serum Glucose 109 H 74-106 mg/dL Calcium Level 10.0 8.7-10.4 mg/dL B-Type Natriuretic Peptide 3.13 0-100 pg/mL Beta HCG, Quantitative 0.3 L 1.5-4.2 mIU/mL PROCEDURE(s): CXRP - CHEST PORTABLE REASON: sob ORDER NUMBER(s): [id number], ACCESSION NUMBER(s): [id number] EXAM: XY CHEST PORTABLE TECHNIQUE: Single frontal chest radiograph CLINICAL HISTORY: sob COMPARISON: XY CHEST PORTABLE on DOS: 06/26/23, XY CHEST PORTABLE on DOS: 02/06/23, CHEST XRAY 1 VIEW on DOS: 08/28/22 Findings/Impression: Frontal chest radiograph demonstrates no acute osseous or superficial soft tissue abnormalities. The trachea is midline. The cardiac silhouette and mediastinum are within normal limits. No pneumothorax, pleural effusions, or consolidations. X-Ray, Labs, Meds, VS Comment 44-year-old female with a history of anemia and heavy menses complaining of fatigue, dyspnea on exertion and current heavy menses. Patient is concerned for anemia and is requesting iron infusion, which she states she usually gets when she has these symptoms. Vitals remarkable for heart rate 129, BP 152/87 Exam remarkable for tachycardia, pallor and anxious appearance Rhythm strip independently interpreted by me: Sinus tach, rate 118, no ectopy. CBC remarkable for hemoglobin 8.7, hematocrit 28.2, metabolic panel, coagulation panel, BNP and 2 serial troponins unremarkable. HCG negative. Patient treated with the following in the ED: 1 L 0.9 normal saline IV bolus, iron infusion IV On re-evaluation, patient states she feels better. Tachycardia has resolved. Vitals were stable. Hospitalization was considered, however patient had rapid improvement of symptoms with treatment in the ED, and I no longer feel hospitalization is necessary. Patient now appears stable for discharge with close outpatient follow-up with her primary physician. Time of 1ST Reevaluation: 17:38 Reevaluation 1ST: Improved Patient Education/Counseling: Diagnosis, Treatment Family Education/Counseling: No Family Present Departure 1 Departure Time of Disposition: 21:38 Impression: Primary Impression: Anemia Qualified Codes: D64.9 - Anemia, unspecified Disposition: HOME / SELF CARE / HOMELESS Condition: Stable Additional Instructions: Your blood tests showed your hemoglobin was 8.7 and hematocrit was 28.2. Your other blood tests, including screening test for heart attack and heart failure were unremarkable. Your chest x-ray was normal. Follow-up with your primary doctor in 1-2 days. Return to ER for persistent or worsening symptoms. Discharged With: Relative Critical Care Note Critical Care Time?: No Stability Stability form required: No Heart Score Heart Score: Heart Score Response (Comments) Value History N/A 0 EKG N/A 0 Age N/A 0 Risk Factors N/A 0 Troponin N/A 0 Total 0 I personally scribed for IAIN JAMISON MD ([email or web address]) on 11/12/24 at 16:43. Electronically submitted by Guillermo Huff ([email or web address]). I personally scribed for IAIN JAMISON MD ([email or web address]) on 11/12/24 at 19:38. Electronically submitted by Nikolas Carrasquillo ([email or web address]). IAIN JAMISON MD Nov 12, 2024 16:43
[2024-11-12 16:46] LABS: BUN/Creatinine Ratio 18.3 (10.0-20.0); Blood Urea Nitrogen 11 mg/dL (9-23)
[2024-11-12 16:49] LABS: INR 1.03 (0.9-1.15); Partial Thromboplastin Time 25.2 SEC (24.5-34.5); Prothrombin Time 10.9 sec (9.3-11.8)
[2024-11-12 16:50] LABS: Glucose 109 mg/dL (74-106)
[2024-11-12 17:01] LABS: Anisocytosis Slight; Hypochromia Marked; Platelet Estimate Adequate; Tear Drop Cells FEW
[2024-11-12 17:02] LABS: Large Platelets FEW
--- NOTE | 2024-11-12 17:55 | DVH ---
EXAM: XY CHEST PORTABLE TECHNIQUE: Single frontal chest radiograph CLINICAL HISTORY: sob COMPARISON: XY CHEST PORTABLE on DOS: 06/26/23, XY CHEST PORTABLE on DOS: 02/06/23, CHEST XRAY 1 VIEW o n DOS: 08/28/22 Findings/Impression: Frontal chest radiograph demonstrates no acute osseous or superficial soft tissue abnormalities. The trachea is midline. The cardiac silhouette and mediastinum are within normal limits. No pneumothorax, pleural effusions, or consolidations.
[2024-11-12] MEDS ORDERED: SODIUM CHLORIDE 0.9% 1,000 ML IV ONE (21:45)
[2024-11-12] MEDS ORDERED: IRON SUCROSE COMPLEX 110 ML IV ONE (21:45)
[2024-11-12 21:50] VITALS: BP 124/47; PULSE 100; RESP 12; TEMP 98.2; O2SAT 99
[2024-11-13] MEDS ORDERED: IRON SUCROSE COMPLEX 110 ML IV ONE (12:00)
--- NOTE | 2024-11-13 19:12 | ECG ---
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
== END 2024-11-12 21:57 | disposition home or self-care (01) ==
LOC: ER 15:05
DX: D64.9 Anemia, unspecified (principal); F41.9 Anxiety disorder, unspecified; Z79.3 Long term (current) use of hormonal contraceptives; Z79.899 Other long term (current) drug therapy
CPT/HCPCS: 36415; 71045; 80048; 83880; 84484; 84702; 85025; 85610; 85730; 86850; 86900; 86901; 93005

== ENCOUNTER 2024-11-30 14:22 | Emergency (ER) | payer OTHER ==
[~2024-11-30] VITALS: Ht 162.6 cm; Wt 97.6 kg
[2024-11-30 14:54] VITALS: BP 149/85; PULSE 120; RESP 18; TEMP 97.8; O2SAT 99
[2024-11-30] MEDS ORDERED: DIPH25CA66 PO (15:24)
[2024-11-30] MEDS ORDERED: PRED10TA PO (15:24)
--- NOTE | 2024-11-30 15:24 | ED.PDOC ---
History of Present Illness HPI Comments 44-year-old female came to the ER stating that she started to have hand hitting especially of the right hand while shopping an hour ago. She was itching throughout her drive over to the ER. She denies any trauma. She denies having eaten any saying that may cause her to H. Denies any allergies. Denies any other symptoms. Chief Complaint: Upper Extremity Time Seen by MD: 14:43 Primary Care Provider: Ac Murcia Reviewed Notes: Nurses Notes, Medications, Allergies Allergies: Coded Allergies: NO KNOWN ALLERGIES (Unverified , 04/27/18) Home Meds Active Scripts Diphenhydramine Hcl (Benadryl Allergy) 25 Mg Cap, 1 CAP PO QPM for 7 Days, #7 CAP 1 Refill Prov:RANI JACKSON MD 11/30/24 Prednisone (Prednisone) 10 Mg Tab, 10 MG PO DAILY for 3 Days, #3 MG Prov:RANI JACKSON MD 11/30/24 Ferrous Sulfate (FERROUS SULFATE) 325 Mg Tb, 1 TAB PO DAILY for 10 Days, #10 TAB 3 Refills Prov:RANI JACKSON MD 10/30/24 Ciprofloxacin Hcl (Cipro) 500 Mg Tab, 1 TAB PO BID for 10 Days, #20 TAB 0 Refills Prov:SHIMON RONDON NP 09/10/24 Hydrocodone-Acetaminophen (Hydrocodone Bitartrate/AC 10-325 mg) 1 Tab Tab, 1 TAB PO Q6HP PRN for 7 Days, #28 TAB 0 Refills Prov:SHIMON RONDON NP 09/10/24 Ferrous Sulfate (Ferrous Sulfate) 300 Mg/5 Ml Sr, 300 MG PO TIDWM for 30 Days, SYP Prov:AALIYAH KEENE DO 06/28/23 Medroxyprogesterone Acetate (Medroxyprogesterone Aceta) 5 Mg Tab, 10 MG PO DAILY for 30 Days, #60 TAB Prov:AALIYAH KEENE DO 06/28/23 Famotidine (PEPCID TABLET) 20 Mg Tb, 1 TAB PO BID, #60 TAB 5 Refills Prov:MAR ACEVEDO DO 02/06/23 Acetaminophen (Tylenol) 325 Mg Cap, 325 MG PO Q4HPRN PRN, #30 CAP 0 Refills Take 1-2 caps po q4h prn for pain Prov:MICHELLE MATT Linda PROCUREMENT PROFESSIONAL 08/28/22 Information Source: Patient Mode of Arrival: Ambulatory Severity: Mild Timing: Minutes Duration: Since onset Past Medical History PAST MEDICAL HISTORY: Anemia, Anxiety 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 History: Other Family History Family History: Reviewed,noncontributory to illness Social History Smoker: Non-Smoker Alcohol: Denies ETOH Use Drugs: Denies Drug Use Lives In: Home Constitutional: denies: chills, diaphoresis, fatigue, fever, malaise, sweats, weakness, others EENTM: denies: blurred vision, double vision, ear bleeding, ear discharge, ear drainage, ear pain, ear ringing, eye pain, eye redness, hearing loss, mouth pain, mouth swelling, nasal discharge, nose bleeding, nose congestion, nose pain, photophobia, tearing, throat pain, throat swelling, voice changes, others Respiratory: denies: cough, hemoptysis, orthopnea, SOB at rest, shortness of breath, SOB with excertion, stridor, wheezing, others Cardiovascular: denies: chest pain, dizzy spells, diaphoresis, Dyspnea on exertion, edema, irregular heart beat, left arm pain, lightheadedness, palp itations, PND, syncope, others Gastrointestinal: denies: abdomen distended, abdominal pain, blood streaked bowels, constipated, diarrhea, dysphagia, difficulty swallowing, hematemesis, melena, nausea, poor appetite, poor fluid intake, rectal bleeding, rectal pain, vomiting, others Genitourinary: denies: abnormal vagina bleeding, burning, dyspareunia, dysuria, flank pain, frequency, hematuria, incontinence, pain, , vagina discharge, urgency, others Neurological: denies: dizziness, fainting, headache, left sided numbness, left sided weakness, numbness, paresthesia, pre-existing deficit, right sided numbness, right sided weakness, seizure, speech problems, tingling, tremors, weakness, others Musculoskeletal: denies: back pain, gout, joint pain, joint swelling, muscle pain, muscle stiffness, neck pain, others Integumetry: reports: others (Right palm itching); denies: bruises, change in color, change in hair/nails, dryness, laceration, lesions, lumps, rash, wounds Allergic/Immunocompromised: denies: Difficulty Healing, Frequent Infections, Hives, Itching, others Hematologic/Lymphatic: denies: anemia, blood clots, easy bleeding, easy bruising, swollen glands, others Endocrine: denies: excessive hunger, excessive sweating, excessive thirst, excessive urination, flushing, intolerance to cold, intolerance to heat, unex plained weight gain, unexplained weight loss, others Psychiatric: denies: anxiety, bipolar disorder, depression, hopeless, panic disorder, schizophrenia, sleepless, suicidal, others Physical Exam General Appearance: Moderate Distress HEENT: Normal ENT Inspection, Pharynx Normal, TMs Normal Neck: Full Range of Motion, Non-Tender, Normal, Normal Inspection Respiratory: Chest Non-Tender, Lungs Clear, No Accessory Muscle Use, No Respiratory Distress, Normal Breath Sounds Cardiovascular: No Edema, No JVD, No Murmur, No Gallop, Normal Peripheral Pulses, Regular Rate/Rhythm Breast Exam: Deferred Gastrointestinal: No Organomegaly, Non Tender, No Pulsatile Mass, Normal Bowel Sounds, Soft Genitalia: Deferred Pelvic: Deferred Rectal: Deferred Extremities: No calf tenderness, Normal capillary refill, Normal inspection, Normal range of motion, Non-tender, No pedal edema Musculoskeletal : Apperance: Normal Neurologic: Alert, security technician II-XII nml as Tested, No Motor Deficits, Normal Affect, Normal Mood, No Sensory Deficits Cerebellar Function: Normal Reflexes: Normal Skin: Dry, Normal Color, Warm Peripheral Pulses: 3+ Radial (R), 3+ Radial (L) Lymphatic: No Adenopathy Was a procedure done? Was a procedure done?: No Differential Dx Considerations may include: Allergic reaction X-Ray, Labs, Meds, VS Vital Signs Date Time Temp Pulse Resp B/P (MAP) Pulse Ox O2 Delivery O2 Flow Rate FiO2 11/30/24 14:54 120 18 99 Room Air 11/30/24 14:54 97.8 120 18 149/85 (106) 99 97.8 11/30/24 14:32 97.8 120 18 149/85 (106) 99 97.8 Patient alert. Complaining of right palm itching. She is anxious. Vitals stable. Heart rate on clinical examination within normal limits. Initially she was very anxious and causing the heart rate to be higher. Normalized. Saturation pristine on room air. Respiratory rate within normal limits. No swelling appreciated. Point Clear in color. No sign of anemia. Was given prescription of prednisone Benadryl for possible allergy. Explained to the patient. Was told to follow up with her primary care physician. Was told to come back if there is any problem. Time of 1ST Reevaluation: 15:21 Reevaluation 1ST: Improved Patient Education/Counseling: Diagnosis, Treatment, Prognosis, Need For Follow Up Family Education/Counseling: No Family Present Departure 1 Departure Time of Disposition: 15:22 Impression: Primary Impression: Allergic reaction Qualified Codes: T78.40XA - Allergy, unspecified, initial encounter Disposition: HOME / SELF CARE / HOMELESS Condition: Good Additional Instructions: Discharge Note: Drink plenty of fluids. Follow up with your primary Dr. If your condition becomes worse call and follow up with your primary Dr. for instructions or return to the ER if needed. Thank you for visiting [facility]. e-Prescriptions Diphenhydramine Hcl (Benadryl Allergy) 25 Mg Cap 1 CAP PO QPM for 7 Days, #7 CAP 1 Refill Prov: RANI JACKSON MD 11/30/24 Prednisone (Prednisone) 10 Mg Tab 10 MG PO DAILY for 3 Days, #3 MG Prov: RANI JACKSON MD 11/30/24 Discharged With: Self Critical Care Note Critical Care Time?: No Stability Stability form required: No Heart Score Heart Score: Heart Score Response (Comments) Value History N/A 0 EKG N/A 0 Age N/A 0 Risk Factors N/A 0 Troponin N/A 0 Total 0 RANI JACKSON MD November 30, 2024 15:24
[2024-11-30] MEDS ORDERED: predniSONE 5 MG TAB PO ONE (15:30)
== END 2024-11-30 15:25 | disposition home or self-care (01) ==
LOC: ER 14:22
DX: T78.40XA Allergy, unspecified, initial encounter (principal); L29.9 Pruritus, unspecified; F41.9 Anxiety disorder, unspecified; Z98.890 Other specified postprocedural states; Z79.3 Long term (current) use of hormonal contraceptives; Z79.52 Long term (current) use of systemic steroids; Z79.899 Other long term (current) drug therapy; Y92.89 Other specified places as the place of occurrence of the external cause